=== PATIENT | female | born 1935 | race Caucasian/White ===

== ENCOUNTER 2022-04-14 10:21 | Emergency (ER) | payer MEDICARE ==
[2022-04-14] MEDS ORDERED: Boostrix 0.5 ML (Tdap) VIAL (>/=7 yrs of age) IM ONE (13:15)
== END 2022-04-14 13:49 | disposition home or self-care (01) ==
LOC: CSHERS 10:21
DX: S82.831A Other fracture of upper and lower end of right fibula, initial encounter for closed fracture (principal); S82.101A Unspecified fracture of upper end of right tibia, initial encounter for closed fracture; I10 Essential (primary) hypertension; E11.9 Type 2 diabetes mellitus without complications; W19.XXXA Unspecified fall, initial encounter
CPT/HCPCS: 90471; 90715